=== PATIENT | male | born 1975 | race Hispanic/Latino ===

== ENCOUNTER 2022-06-12 02:50 | Inpatient (IN) | payer SELFPAY ==
[2022-06-12] MEDS ORDERED: Ondansetron PF 4 MG/2 ML Vial ONE (03:02)
[2022-06-12] MEDS ORDERED: Midazolam HCl 2 mg/2 ml Vial ONE (03:09)
[2022-06-12 03:17] LABS: #Lymphocytes 1.3 thou/uL (1.20-3.40); #Monocytes 0.4 thou/uL (0.11-0.59); #Neutrophils 16.7 thou/uL (1.40-6.50); %Basophils 0.3 % (0.0-1.0); %Eosinophils 0.2 % (0.0-10.0); %Lymphocytes 7.2 % (21.0-51.0); %Monocytes 2.3 % (0.0-10.0); %Neutrophils 90.1 % (42.0-75.0); Hemoglobin 10.7 g/dL (14.0-18.0); Mean Corpuscular HGB CONC 34.7 g/dL (32.0-36.0); Mean Corpuscular Hemoglobin 33.6 pg (27.0-31.0); Mean Corpuscular Volume 96.9 fL (78.0-98.0); Mean Platelet Volume 10.1 fL (7.4-10.4); Platelet Count 280 thou/uL (130-400); White Blood Cell (WBC) Count 18.6 thou/uL (4.8-10.8)
[2022-06-12 03:18] LABS: Analyzer IN Cardio ER; pH (venous) 7.29 (7.32-7.43)
[2022-06-12 03:19] LABS: Base Excess -11.5 mEq/L (-2.0 to +3.0); Calcium, Ionized (venous) 1.21 mmol/L (1.16-1.32); Chloride (VBG) 100 mmol/L (98-106); Hemoglobin (Hb) 11.6 g/dL (13.1-17.2); Potassium (VBG) 4.18 mmol/L (3.70-5.30); Sodium 133.9 mmol/L (133-146)
[2022-06-12 03:21] LABS: Actual Bicarbonate (HCO3v) 14 mEq/L (22-28)
[2022-06-12 03:34] LABS: ALT (SGPT) 20 U/L (8-55); AST (SGOT) 11 U/L (5-34); Albumin 3.9 g/dL (3.5-5.0); Alkaline Phosphatase 74 U/L (40-110); Anion Gap 23 mmol/L (10-20); BUN (Urea Nitrogen) 43 mg/dL (8.9-20.6); Bilirubin, Total 0.8 mg/dL (0.2-1.2); Calc. Creatinine Clearance 0 mL/min (70-130); Carbon Dioxide 13 mmol/L (22-29); Chloride 103 mmol/L (98-107); Estimated GFR 96; Globulin 2.2 g/dL (2.4-3.5); Glucose 522 mg/dL (70-105); Magnesium 1.7 mg/dL (1.6-2.6); Potassium 4.2 mmol/L (3.5-5.1); Protein, Total 6.1 g/dL (6.0-8.3); Sodium 135 mmol/L (136-145)
[2022-06-12] MEDS ORDERED: NS 0.9% w/ 40 MEQ KCL 1,000 ML IV SCH (04:00)
[2022-06-12] MEDS ORDERED: INSULIN REGULAR IN 0.9 % NACL 100 UNIT/100 ML BAG ONE (04:20)
[2022-06-12] MEDS ORDERED: Insulin Regular 300 UNITS/3 ML VIAL ONE (04:20)
[2022-06-12] MEDS ORDERED: Electrolyte Replacement Protocol 1 EACH IVPB PRN (06:01)
[2022-06-12] MEDS ORDERED: Ondansetron PF 4 MG/2 ML Vial IVP PRN (06:01)
[2022-06-12] MEDS ORDERED: Dextrose 5 %-0.45 % NaCl 1,000 ML IV PRN (06:01)
[2022-06-12] MEDS ORDERED: NS 0.9% w/ 20 MEQ KCL 1,000 ML IV PRN ×2 (06:01)
[2022-06-12] MEDS ORDERED: Sodium Chloride 0.9% 1,000 ML IV PRN ×4 (06:01)
[2022-06-12] MEDS ORDERED: HUMULIN R 100 UNITS in Sodium Chloride 0.9% 100 ML IVPB SCH (06:15)
[2022-06-12 06:36] LABS: SARS-CoV-2 NAA Rapid Test Not Detected (NotDetected)
[2022-06-12] MEDS: D5 1/2 NS w/20 mEq KCL 1,000 ML IV PRN ×2 (06:57→11:10)
[2022-06-12 07:46] LABS: Anion Gap 14 mmol/L (10-20); BUN (Urea Nitrogen) 37 mg/dL (8.9-20.6); Calc. Creatinine Clearance 0 mL/min (70-130); Calcium 8.1 mg/dL (7.8-10.44); Carbon Dioxide 15 mmol/L (22-29); Chloride 113 mmol/L (98-107); Estimated GFR 112; Glucose 165 mg/dL (70-105); Potassium 4.4 mmol/L (3.5-5.1); Sodium 138 mmol/L (136-145)
[2022-06-12 07:55] LABS: Hemoglobin A1c 8.9 % (4.0-6.0)
[2022-06-12 08:00] VITALS: BMI 28.8
[2022-06-12] MEDS ORDERED: Magnesium 2 GM/50 ML(in water) 2 GM in Premix Bag 1 BAG IVPB SCH (08:00)
[2022-06-12 10:35] LABS: Hemoglobin 10.2 g/dL (14.0-18.0)
[2022-06-12 12:55] LABS: Chloride 108 mmol/L (98-107); Potassium 3.7 mmol/L (3.5-5.1); Sodium 135 mmol/L (136-145)
[2022-06-12 12:56] LABS: Calcium 7.6 mg/dL (7.8-10.44); Glucose 263 mg/dL (70-105)
[2022-06-12 12:57] LABS: Anion Gap 9 mmol/L (10-20); Carbon Dioxide 22 mmol/L (22-29)
[2022-06-12 12:59] LABS: Calc. Creatinine Clearance 140 mL/min (70-130); Estimated GFR 111
[2022-06-12 13:00] LABS: BUN (Urea Nitrogen) 29 mg/dL (8.9-20.6)
[2022-06-12] MEDS: Pantoprazole 80 MG in Sodium Chloride 0.9% 100 ML IVPB SCH (13:08)
[2022-06-12] MEDS ORDERED: Dextrose 50% Abboject 50 ML SYRINGE IVP PRN (15:00)
[2022-06-12] MEDS ORDERED: Dextrose 5% in Water 1,000 ML IV PRN (15:00)
[2022-06-12] MEDS: Insulin Regular 300 UNITS/3 ML VIAL SC PRN ×2 (17:17→21:29)
[2022-06-12 18:40] LABS: Hemoglobin 7.8 g/dL (14.0-18.0)
[2022-06-13 00:08] LABS: Bacteria/HPF None Seen HPF (None Seen); Bilirubin Negative (Negative); Blood, Urine Negative (Negative); Clarity Clear (Clear); Glucose, Urine (Dipstick) Greater than 1000 mg/dL (Negative); Ketone, Urine 80 mg/dL (Negative); Leukocyte 75 Leu/uL (Negative); Nitrite Negative (Negative); Protein, Urine (Dipstick) Negative (Neg-Trace); RBC/HPF 0-3 HPF (0-3); Specific Gravity, Urine 1.025 (1.002-1.036); Squamous Epithelial 0-3 HPF (0-3); Urobilinogen Normal mg/dL (Less than 2); pH, Urine 5.5 (5.0-9.0)
[2022-06-13 00:11] LABS: Urine Culture Reflex Yes Yes
[2022-06-13 03:54] LABS: #Basophils 0.1 thou/uL (0.0-0.2); #Eosinphils 0.1 thou/uL (0.0-0.7); #Lymphocytes 3.2 thou/uL (1.20-3.40); #Monocytes 0.7 thou/uL (0.11-0.59); #Neutrophils 5.8 thou/uL (1.40-6.50); %Basophils 0.6 % (0.0-1.0); %Lymphocytes 33.1 % (21.0-51.0); %Monocytes 6.6 % (0.0-10.0); %Neutrophils 58.7 % (42.0-75.0); Hemoglobin 9.2 g/dL (14.0-18.0); Mean Corpuscular HGB CONC 36.1 g/dL (32.0-36.0); Mean Corpuscular Hemoglobin 34.9 pg (27.0-31.0); Mean Corpuscular Volume 96.8 fL (78.0-98.0); Mean Platelet Volume 9.9 fL (7.4-10.4); Platelet Count 180 thou/uL (130-400); RBC Distribution Width 12.5 % (11.5-14.5); Red Blood Cell (RBC) Count 2.62 mill/uL (4.70-6.10); White Blood Cell (WBC) Count 9.8 thou/uL (4.8-10.8)
[2022-06-13 04:08] LABS: Anion Gap 9 mmol/L (10-20); BUN (Urea Nitrogen) 18 mg/dL (8.9-20.6); Calc. Creatinine Clearance 138 mL/min (70-130); Calcium 8.1 mg/dL (7.8-10.44); Carbon Dioxide 24 mmol/L (22-29); Chloride 108 mmol/L (98-107); Estimated GFR 110; Glucose 293 mg/dL (70-105); Potassium 3.6 mmol/L (3.5-5.1); Sodium 137 mmol/L (136-145)
[2022-06-13] MEDS: Acetaminophen 325 MG TAB PO PRN ×2 (06:15→15:56)
[2022-06-13] MEDS: Insulin Regular 300 UNITS/3 ML VIAL SC PRN ×2 (06:16→20:55)
[2022-06-13] MEDS: Pantoprazole 80 MG in Sodium Chloride 0.9% 100 ML IVPB SCH (07:41)
[2022-06-13] MEDS ORDERED: PROPOFOL 200 MG/20 ML VIAL ONE (10:50)
[2022-06-13 10:56] LABS: Hemoglobin 9.7 g/dL (14.0-18.0)
[2022-06-13 18:23] LABS: Hemoglobin 9.2 g/dL (14.0-18.0)
[2022-06-13] MEDS: Pantoprazole 80 MG, Admixture Fee 1 EACH in Sodium Chloride 0.9% 100 ML IVPB SCH (18:29)
[2022-06-14 03:56] LABS: #Basophils 0.1 thou/uL (0.0-0.2); #Eosinphils 0.1 thou/uL (0.0-0.7); #Lymphocytes 2.1 thou/uL (1.20-3.40); #Monocytes 0.8 thou/uL (0.11-0.59); %Basophils 0.6 % (0.0-1.0); %Eosinophils 0.6 % (0.0-10.0); %Monocytes 8.4 % (0.0-10.0); %Neutrophils 69.4 % (42.0-75.0); Hemoglobin 9.9 g/dL (14.0-18.0); Mean Corpuscular Hemoglobin 33.9 pg (27.0-31.0); Mean Corpuscular Volume 96.7 fL (78.0-98.0); Mean Platelet Volume 9.2 fL (7.4-10.4); Platelet Count 199 thou/uL (130-400); RBC Distribution Width 12.7 % (11.5-14.5); Red Blood Cell (RBC) Count 2.91 mill/uL (4.70-6.10)
[2022-06-14 04:16] LABS: Anion Gap 9 mmol/L (10-20); BUN (Urea Nitrogen) 8 mg/dL (8.9-20.6); Calc. Creatinine Clearance 147 mL/min (70-130); Calcium 8.6 mg/dL (7.8-10.44); Carbon Dioxide 26 mmol/L (22-29); Chloride 104 mmol/L (98-107); Estimated GFR 113; Glucose 260 mg/dL (70-105); Potassium 3.3 mmol/L (3.5-5.1); Sodium 136 mmol/L (136-145)
[2022-06-14] MEDS: Insulin Regular 300 UNITS/3 ML VIAL SC PRN ×2 (05:43→12:13)
[2022-06-14] MEDS: Pantoprazole 80 MG, Admixture Fee 1 EACH in Sodium Chloride 0.9% 100 ML IVPB SCH (05:43)
[2022-06-14 07:09] VITALS: TEMP 98.7
[2022-06-14] MEDS ORDERED: Potassium Chloride 20 MEQ in Premix Bag 1 BAG IVPB SCH (08:00)
[2022-06-14] MEDS ORDERED: Potassium Chloride 20 MEQ TAB PO SCH (08:00)
[2022-06-14] MEDS ORDERED: traMADol HCl 50 MG TAB PO SCH (08:45)
== END 2022-06-14 12:30 | disposition home or self-care (01) | DRG 377 ==
LOC: ERS 02:50 → IMCU/EMU 05:34
PROVIDERS: ADMIT Internal Medicine; ATTEND Family Medicine
PROC: 30233N1 Transfusion of Nonautologous Red Blood Cells into Peripheral Vein, Percutaneous Approach (ICD-10-PCS; 2022-06-12)
PROC: 0DB68ZX Excision of Stomach, Via Natural or Artificial Opening Endoscopic, Diagnostic (ICD-10-PCS; principal; 2022-06-13)
DX: K25.4 Chronic or unspecified gastric ulcer with hemorrhage (principal); E11.10 Type 2 diabetes mellitus with ketoacidosis without coma; D62 Acute posthemorrhagic anemia; K26.4 Chronic or unspecified duodenal ulcer with hemorrhage; I10 Essential (primary) hypertension; E86.0 Dehydration; D72.829 Elevated white blood cell count, unspecified; T39.395A Adverse effect of other nonsteroidal anti-inflammatory drugs [NSAID], initial encounter; Z87.01 Personal history of pneumonia (recurrent); Z90.49 Acquired absence of other specified parts of digestive tract; Z79.899 Other long term (current) drug therapy; Z20.822 Contact with and (suspected) exposure to COVID-19
CPT/HCPCS: 36415; 36416; 80048; 80053; 82010; 82805; 83036; 83735; 85025; 86850; 86900; 86901; 87086; 88305; 88342; 93005; 96374; 96375; C9113; J1815; J2250; J2405; J2704; J3475; J3480; J3490; P9016; U0002